=== PATIENT | male | born 1995 | race Two or more races ===

== ENCOUNTER 2023-10-08 11:16 | Inpatient (IN) | payer OTHER ==
[~2023-10-08] VITALS: Ht 157.5 cm; Wt 54.5 kg
[2023-10-08 12:39] LABS: BASOPHILS % (AUTO) 0.3 % (0.0-2.0); HEMATOCRIT 43.2 % (41-53); HEMOGLOBIN 14.5 g/dL (13.5-17.5); LYMPHOCYTES # (AUTO) 2.1 K/uL (1.0-4.8); MEAN CORPUSCULAR HEMOGLOBIN 27.7 pg (26.0-34.0); MEAN CORPUSCULAR HGB CONC 33.7 G/dL (31.0-37.0); MEAN CORPUSCULAR VOLUME 82 fL (80-100); MONOCYTES # (AUTO) 0.6 K/uL (0.1-1.0); MONOCYTES % (AUTO) 9.5 % (2.0-9.0); NEUTROPHILS # (AUTO) 3.8 K/uL (1.8-7.7); NEUTROPHILS % (AUTO) 57.2 % (40.0-70.0); PLATELET COUNT (AUTO) 282 K/uL (150-450); RED BLOOD CELL COUNT(AUTO) 5.26 MIL/uL (4.50-5.90); RED CELL DISTRIBUTION WIDTH 16.1 % (11.5-14.5); WHITE BLOOD COUNT (AUTO) 6.7 K/uL (4.5-11.0)
[2023-10-08 12:49] LABS: ANION GAP 9 mmol/L (8-16); CALCIUM, TOTAL 9.3 mg/dL (8.8-10.5); CARBON DIOXIDE 27 mmol/L (22-29); CHLORIDE 99 mmol/L (98-107); CREATININE 0.92 mg/dL (0.60-1.30); GLOMERULAR FILTR. RATE CALC > 60 mL/min (>60); GLUCOSE,RANDOM 101 mg/dL (70-110); POTASSIUM 4.4 mmol/L (3.5-5.1); SODIUM SERUM 135 mmol/L (136-145); UREA NITROGEN, BLOOD 11 mg/dL (7-18)
[2023-10-08 12:56] LABS: ALANINE AMINOTRANSFERASE 31 U/L (12-78); ALKALINE PHOSPHATASE 43 U/L (46-116); ASPARTATE AMINOTRANSFERASE 38 U/L (15-37); BILIRUBIN,TOTAL 1.5 mg/dL (0.1-1.0)
[2023-10-08 13:39] LABS: COVID AG,FIA SOURCE NASAL SWAB
[2023-10-08 14:00] LABS: SARS-COV2 (COVID) ANTIGEN,FIA Negative (Negative)
[2023-10-08] MEDS ORDERED: IPRATROPIUM BROMIDE 0.5 MG/2.5 ML NEB SOLUTION NEB PRN (14:45)
[2023-10-08] MEDS ORDERED: BISACODYL 10 MG RECTAL RECTAL SUPPOSITORY PR PRN (14:45)
[2023-10-08] MEDS ORDERED: ACETAMINOPHEN 325 MG TABLET PO PRN (14:45)
[2023-10-08] MEDS ORDERED: PANTOPRAZOLE SODIUM 40 MG DR TABLET PO ONE (14:45)
[2023-10-08] MEDS ORDERED: ALBUTEROL SULFATE 2.5 MG/0.5 ML NEB SOLUTION NEB PRN (14:45)
[2023-10-08] MEDS ORDERED: MAGNESIUM HYDROXIDE SUSPENSION 30 ML UDCUP PO PRN (14:45)
[2023-10-08] MEDS ORDERED: ZOLPIDEM TARTRATE 5 MG TABLET PO PRN (14:45)
[2023-10-08] MEDS ORDERED: ONDANSETRON HCL 4 MG/2 ML VIAL IVP PRN (14:45)
[2023-10-08 15:25] VITALS: BP 122/58; PULSE 58; RESP 18; TEMP 98.3
[2023-10-08] MEDS: HEPARIN SODIUM,PORCINE 5,000 UNITS/ML VIAL SQ SCH (18:30)
[2023-10-08 19:09] VITALS: BP 116/60; PULSE 66; RESP 18; TEMP 98.1
[2023-10-08] MEDS ORDERED: SODIUM CHLORIDE 3% 15 ML NEB SOLUTION NEB ONE (21:50)
[2023-10-08 22:00] VITALS: PULSE 68; RESP 16; O2SAT 99
[2023-10-09] MEDS: HEPARIN SODIUM,PORCINE 5,000 UNITS/ML VIAL SQ SCH ×3 (00:13→16:27)
[2023-10-09 05:20] VITALS: BP 105/62; PULSE 58; RESP 18; TEMP 97.8
[2023-10-09 08:07] LABS: HIV 1-2 SCREEN 4TH GEN W/RFLX Non Reactive (Non Reactive)
[2023-10-09 09:19] VITALS: BP 105/63; PULSE 61; RESP 19; TEMP 98.2
[2023-10-09 17:37] LABS: MTB PCR w/Rif. Resistance-SPUT NOT DETECTED (Not Detectd)
[2023-10-09 20:10] VITALS: BP 105/67; PULSE 66; RESP 18; TEMP 98
[2023-10-10] MEDS: HEPARIN SODIUM,PORCINE 5,000 UNITS/ML VIAL SQ SCH ×3 (00:53→15:45)
[2023-10-10 05:07] VITALS: BP 127/60; PULSE 69; RESP 18; TEMP 98
[2023-10-10 08:54] VITALS: BP 125/76; PULSE 69; RESP 18; TEMP 98; O2SAT 100
[2023-10-10 12:06] LABS: QUANTIFERON+, Nil Value 0.02 IU/mL; QUANTIFERON+,Mitogen Value >10.00 IU/mL; QUANTIFERON+,TB1 Antigen Value 0.04 IU/mL; QUANTIFERON+,TB2 Antigen Value 0.02 IU/mL; QUANTIFERON, TB GOLD PLUS Negative (Negative)
[2023-10-10 14:00] LABS: MTB PCR w/Rif. Resistance-SPUT NOT DETECTED (Not Detectd)
[2023-10-10 16:00] VITALS: BP 110/62; RESP 18
[2023-10-10 20:53] VITALS: BP 122/77; PULSE 77; RESP 18; TEMP 97.6
[2023-10-11] MEDS: HEPARIN SODIUM,PORCINE 5,000 UNITS/ML VIAL SQ SCH ×4 (00:10→23:21)
[2023-10-11 06:14] VITALS: BP 126/74; PULSE 57; RESP 19; TEMP 98.2
[2023-10-11 08:12] VITALS: BP 116/77; PULSE 58; RESP 18; TEMP 98.2
[2023-10-11 15:56] VITALS: BP 127/79; PULSE 60; RESP 18; TEMP 97.7
[2023-10-11 19:32] VITALS: BP 120/72; PULSE 62; RESP 18; TEMP 97.8
[2023-10-12 04:48] VITALS: BP 116/67; PULSE 66; RESP 18; TEMP 97.7
[2023-10-12 07:57] VITALS: BP 99/63; PULSE 63; RESP 18; TEMP 97.9
[2023-10-12] MEDS: HEPARIN SODIUM,PORCINE 5,000 UNITS/ML VIAL SQ SCH ×3 (08:09→22:59)
[2023-10-12 19:15] VITALS: BP 114/62; PULSE 58; RESP 18; TEMP 98
[2023-10-13 03:50] VITALS: BP 102/60; PULSE 56; RESP 18; TEMP 98.1
[2023-10-13 07:35] VITALS: BP 114/55; PULSE 71; RESP 18; TEMP 98.5
[2023-10-13] MEDS: HEPARIN SODIUM,PORCINE 5,000 UNITS/ML VIAL SQ SCH ×3 (08:13→23:45)
[2023-10-13 20:42] VITALS: BP 116/65; PULSE 63; RESP 18; TEMP 97.6
[2023-10-13 21:50] VITALS: BP 103/60; PULSE 59; RESP 18; TEMP 98
[2023-10-14 04:48] VITALS: BP 109/70; PULSE 58; RESP 18; TEMP 97.9
[2023-10-14] MEDS: HEPARIN SODIUM,PORCINE 5,000 UNITS/ML VIAL SQ SCH ×2 (08:02→16:03)
[2023-10-14 08:18] VITALS: BP 113/77; PULSE 52; RESP 18; TEMP 98.2
[2023-10-14 19:50] VITALS: BP 109/69; PULSE 59; RESP 18; TEMP 98
[2023-10-15] MEDS: HEPARIN SODIUM,PORCINE 5,000 UNITS/ML VIAL SQ SCH ×3 (00:29→16:00)
[2023-10-15 04:59] VITALS: BP 107/62; PULSE 54; RESP 18; TEMP 97.4
[2023-10-15 11:33] VITALS: BP 116/78; PULSE 66; RESP 20; TEMP 97.8
[2023-10-15 17:07] VITALS: BP 132/64; PULSE 85; RESP 20; TEMP 99.6
[2023-10-15 20:16] VITALS: BP 112/62; PULSE 61; RESP 18; TEMP 97.6
[2023-10-16] MEDS: HEPARIN SODIUM,PORCINE 5,000 UNITS/ML VIAL SQ SCH ×2 (00:36→08:19)
[2023-10-16 04:28] VITALS: BP 107/64; PULSE 65; RESP 18; TEMP 97.9
[2023-10-16 07:13] LABS: ANION GAP 6 mmol/L (8-16); CALCIUM, TOTAL 9.2 mg/dL (8.8-10.5); CARBON DIOXIDE 29 mmol/L (22-29); CHLORIDE 100 mmol/L (98-107); CREATININE 1.07 mg/dL (0.60-1.30); GLOMERULAR FILTR. RATE CALC > 60 mL/min (>60); GLUCOSE,RANDOM 90 mg/dL (70-110); POTASSIUM 4.3 mmol/L (3.5-5.1); SODIUM SERUM 135 mmol/L (136-145); UREA NITROGEN, BLOOD 13 mg/dL (7-18)
[2023-10-16 08:59] VITALS: BP 125/73; PULSE 52; RESP 18; TEMP 97
== END 2023-10-16 14:19 | DRG 641 ==
LOC: EMS 11:18 → 6S 14:36
PROVIDERS: ADMIT Hospitalist; ATTEND Hospitalist
DX: E87.1 Hypo-osmolality and hyponatremia (principal); A15.9 Respiratory tuberculosis unspecified; J06.9 Acute upper respiratory infection, unspecified; Z20.822 Contact with and (suspected) exposure to COVID-19
CPT/HCPCS: 71046; 80048; 80053; 85025; 86480; 87015; 87206; 87389; 87556; 94640; 99285; J1644; 36415-L1; 36415-TC